=== PATIENT | female | born 1985 | race American Indian/Alaskan Native ===

== ENCOUNTER 2018-04-30 03:01 | Emergency (ER) | payer OTHER ==
[2018-04-30] MEDS ORDERED: NACL 0.9% 1000 ML 1,000 ML IV ONE (03:19)
[2018-04-30 03:45] LABS: Basophils # (Auto) 0.1 K/mm3 (0.0-0.1); Basophils % (Auto) 0.7 % (0.0-1.8); Eosinophils # (Auto) 0.1 K/mm3 (0.0-0.4); Eosinophils % (Auto) 0.5 % (0.0-4.3); Hematocrit 41.9 % (30.3-42.9); Hemoglobin 13.8 gm/dl (10.1-14.3); Lymphocytes # (Auto) 1.7 K/mm3 (1.2-5.4); Lymphocytes % (Auto) 12.7 % (13.4-35.0); Mean Corpuscular HGB Conc 33 % (30-34); Mean Corpuscular Volume 88 fl (79-97); Monocytes # (Auto) 0.9 K/mm3 (0.0-0.8); Monocytes % (Auto) 6.7 % (0.0-7.3); Platelet Count 257 K/mm3 (140-440); Red Blood Count 4.77 M/mm3 (3.65-5.03)
[2018-04-30 03:56] LABS: Bacteria,Urine 2+ /HPF (Negative); Bilirubin,Urine NEG (Negative); Blood,Urine MOD (Negative); Color,Urine Amber (Yellow)
[2018-04-30 03:58] LABS: Alanine Aminotransferase 18 units/L (7-56); Albumin 4.4 g/dL (3.9-5); BUN/Creatinine Ratio 10; Blood Urea Nitrogen 7 mg/dL (7-17); Calcium 9.2 mg/dL (8.4-10.2); Hemolysis Index 5
[2018-04-30] MEDS ORDERED: TORADOL IV ONE (06:24)
[2018-04-30] MEDS ORDERED: ZOFRAN IV ONE (06:24)
[2018-04-30] MEDS ORDERED: LEVAQUIN PO ONE (06:24)
--- NOTE | 2018-04-30 06:30 | Emergency Department Report ---
HPI - General Chief Complaint: Abdominal Pain Time Seen by Provider: 04/30/18 06:16 - HPI HPI: Room 26 The patient is a 32-year-old female presenting with a chief complaint of left flank pain. The patient states this evening she developed constant pain in the left flank associated with nausea and vomiting. Patient admits to shaking chills but is uncertain if she's had a fever. Patient states 2 days ago she has some vaginal pressure while urinating but denies dysuria. Location: Left flank Duration: One night Quality: Pain Severity:10 Modifying factors: [see above] Context: [see above] Mode of transportation: The patient drove herself to the emergency department and there are no visitors present ED Past Medical Hx - Past Medical History Previous Medical History?: No - Surgical History Past Surgical History?: No - Family History Family history: no significant - Social History Smoking Status: Never Smoker Substance Use Type: None (denies illicit drug use), Alcohol (occasional) - Medications Home Medications: Home Medications Medication Instructions Recorded Confirmed Last Taken Type Ciprofloxacin HCl [Ciprofloxacin 500 mg PO Q12H #20 tab 04/30/18 Unknown Rx TAB] HYDROcodone/APAP 5-325 [[place] 1 - 2 each PO Q6HR PRN #14 tablet 04/30/18 Unknown Rx 5/325] Ibuprofen [Motrin 800 MG tab] 800 mg PO Q8HR PRN #20 tablet 04/30/18 Unknown Rx Promethazine [Phenergan TAB] 25 mg PO Q6HR PRN #20 tab 04/30/18 Unknown Rx ED Review of Systems ROS: Stated complaint: CHILLS/BACK/STOMACH PAIN Other details as noted in HPI Constitutional: chills Eyes: denies: eye pain ENT: denies: throat pain Respiratory: no symptoms reported Cardiovascular: denies: chest pain Endocrine: no symptoms reported Gastrointestinal: abdominal pain, nausea, vomiting Genitourinary: other (vaginal pressure with urination) Musculoskeletal: back pain Neurological: denies: headache Physical Exam - Physical Exam Vital Signs: Vital Signs 04/30/18 03:05 Temperature 99.1 F Pulse Rate 90 Respiratory 18 Rate Blood Pressure 143/93 O2 Sat by Pulse 99 Oximetry Physical Exam: GENERAL: The patient is well-developed well-nourished female lying on stretcher appearing to be in mild discomfort. [] HEENT: Normocephalic. Atraumatic. Extraocular motions are intact. Patient has moist mucous membranes. NECK: Supple. Trachea midline CHEST/LUNGS: Clear to auscultation. There is no respiratory distress noted. HEART/CARDIOVASCULAR: Regular. There is no tachycardia. There is no gallop rub or murmur. ABDOMEN: Abdomen is soft, nontender. Palpation in the right abdomen causes discomfort in the left abdomen. Patient has normal bowel sounds. There is no abdominal distention. SKIN: There is no rash. There is no edema. There is no diaphoresis. NEURO: The patient is awake, alert, and oriented. The patient is cooperative. The patient has normal speech MUSCULOSKELETAL: There is left CVA tenderness. There is no evidence of acute injury. ED Course Vital Signs 04/30/18 03:05 Temperature 99.1 F Pulse Rate 90 Respiratory 18 Rate Blood Pressure 143/93 O2 Sat by Pulse 99 Oximetry ED Medical Decision Making - Lab Data Result diagrams: 04/30/18 03:24 04/30/18 03:24 Laboratory Tests 04/30/18 04/30/18 04/30/18 03:22 03:24 03:24 WBC 13.2 H RBC 4.77 Hgb 13.8 Hct 41.9 MCV 88 MCH 29 MCHC 33 RDW 14.0 Plt Count 257 Lymph % (Auto) 12.7 L [place] % (Auto) 6.7 Eos % (Auto) 0.5 Baso % (Auto) 0.7 Lymph # 1.7 [place] # 0.9 H Eos # 0.1 Baso # 0.1 Seg Neutrophils % 79.4 H Seg Neutrophils # 10.4 H Sodium 137 Potassium 3.9 Chloride 99.6 Carbon Dioxide 24 Anion Gap 17 BUN 7 Creatinine 0.7 Estimated GFR > 60 BUN/Creatinine Ratio 10 Glucose 97 Calcium 9.2 Total Bilirubin 0.20 AST 23 ALT 18 Alkaline Phosphatase 95 Total Protein 7.4 Albumin 4.4 Albumin/Globulin Ratio 1.5 HCG, Qual Urine Color Yelena Urine Turbidity Clear Urine pH 5.0 Ur Specific [place] 1.011 Urine Protein 30 mg/dl Urine Glucose (UA) Neg Urine Ketones Neg Urine Blood Mod Urine Nitrite Pos Urine Bilirubin Neg Urine Urobilinogen 2.0 Ur Leukocyte Esterase Mod Urine WBC (Auto) 155.0 H Urine RBC (Auto) 65.0 U Epithel Cells (Auto) 1.0 Urine Bacteria (Auto) 2+ 04/30/18 03:24 WBC RBC Hgb Hct MCV MCH MCHC RDW Plt Count Lymph % (Auto) [place] % (Auto) Eos % (Auto) Baso % (Auto) Lymph # [place] # Eos # Baso # Seg Neutrophils % Seg Neutrophils # Sodium Potassium Chloride Carbon Dioxide Anion Gap BUN Creatinine Estimated GFR BUN/Creatinine Ratio Glucose Calcium Total Bilirubin AST ALT Alkaline Phosphatase Total Protein Albumin Albumin/Globulin Ratio HCG, Qual Negative Urine Color Urine Turbidity Urine pH Ur Specific [place] Urine Protein Urine Glucose (UA) Urine Ketones Urine Blood Urine Nitrite Urine Bilirubin Urine Urobilinogen Ur Leukocyte Esterase Urine WBC (Auto) Urine RBC (Auto) U Epithel Cells (Auto) Urine Bacteria (Auto) - Radiology Data Radiology results: report reviewed (CT abdomen and pelvis), image reviewed (CT abdomen and pelvis) [facility] [address] [place] [address] Cat Scan Report Signed Patient: UMESH PANIAGUA MR#: [id number] : 1985 Acct:[id number] Age/Sex: 32 / F ADM Date: 04/30/18 Loc: ED Attending Dr: Ordering Physician: MIRIAM SMITH MD Date of Service: 04/30/18 Procedure(s): CT abdomen pelvis wo con Accession Number(s): [id number] cc: MIRIAM SMITH MD FINAL REPORT EXAM: CT ABDOMEN PELVIS WO CON HISTORY: left flank pain. NO HX OF STONES TECHNIQUE: CT images obtained through the Abdomen and Pelvis without contrast. Transaxial,coronal and sagittal reformats are provided. PRIORS: None. FINDINGS: Imaged intrathoracic contents are unremarkable. Kidneys are normal in size, axis and position. Mild left hydroureteronephrosis. No nephroureterolithiasis identified. Multiple pelvic phleboliths. Anteverted uterus. No free fluid in the pelvis. The liver, gallbladder, pancreas, spleen, and adrenal glands demonstrate a normal noncontrast appearance. Hollow enteric organs are normal in course and caliber. Appendix is normal. No intra-abdominal free air/fluid or lymphadenopathy. Aorta is normal in course and caliber. Superficial soft tissues are unremarkable. No acute or aggressive appearing skeletal findings. IMPRESSION: Mild left hydroureteronephrosis without nephrolithiasis. Multiple pelvic phleboliths are present. Differential diagnosis includes recently passed stone and infection. Correlation with urinalysis is requested. Transcribed By: LILLI Dictated By: STACI SMITH MD Electronically Authenticated By: STACI SMITH MD Signed Date/Time: 04/30/18745 DD/ 7 TD/TT: 04/30/18747 - Differential Diagnosis pyelonephritis, renal colic Critical care attestation.: If time is entered above; I have spent that time in minutes in the direct care of this critically ill patient, excluding procedure time. ED Disposition Clinical Impression: Acute left flank pain, Pyelonephritis Disposition: TO HOME OR SELFCARE Is pt being admited?: No Does the pt Need Aspirin: No Condition: Stable Instructions: Abdominal Pain (ED) Additional Instructions: Return to the emergency department immediately should you develop worsening symptoms, fever, inability to tolerate food or liquid or any other concerns. Prescriptions: Ciprofloxacin HCl [Ciprofloxacin TAB] 500 mg PO Q12H #20 tab HYDROcodone/APAP 5-325 [[place] 5/325] 1 - 2 each PO Q6HR PRN #14 tablet PRN Reason: Pain Ibuprofen [Motrin 800 MG tab] 800 mg PO Q8HR PRN #20 tablet PRN Reason: Pain, Moderate (4-6) Promethazine [Phenergan TAB] 25 mg PO Q6HR PRN #20 tab PRN Reason: Nausea Referrals: JL ROBERTSON [Staff Physician] - 3-5 Days Time of Disposition: 08:14
--- NOTE | 2018-04-30 07:46 | Cat Scan Report ---
FINAL REPORT EXAM: CT ABDOMEN PELVIS WO CON HISTORY: left flank pain. NO HX OF STONES TECHNIQUE: CT images obtained through the Abdomen and Pelvis without contrast. Transaxial,coronal an d sagittal reformats are provided. PRIORS: None. FINDINGS: Imaged intrathoracic contents are unremarkable. Kidneys are normal in size, axis and position. Mild left hydroureteronephrosis. No nephroureterolithi asis identified. Multiple pelvic phleboliths. Anteverted uterus. No free fluid in the pelvis. The liver, gallbladder, pancreas, spleen, and adrenal glands demonstrate a normal noncontrast appeara nce. Hollow enteric organs are normal in course and caliber. Appendix is normal. No intra-abdominal free air/fluid or lymphadenopathy. Aorta is normal in course and caliber. Superficial soft tissues are unremarkable. No acute or aggressive appearing skeletal findings. IMPRESSION: Mild left hydroureteronephrosis without nephrolithiasis. Multiple pelvic phleboliths are present. Dif ferential diagnosis includes recently passed stone and infection. Correlation with urinalysis is requ ested.
[2018-04-30 08:38] VITALS: BP 128/84
== END 2018-04-30 08:38 | disposition home or self-care (01) ==
LOC: ED 03:01
DX: N12 Tubulo-interstitial nephritis, not specified as acute or chronic (principal); Z88.6 Allergy status to analgesic agent; Z88.2 Allergy status to sulfonamides
CPT/HCPCS: 36415; 74176; 80053; 81001; 84703; 85025; 96361; 96374; 96375; 99284; J1885; J2405; J7030